=== PATIENT | female | born 2000 | race Caucasian/White ===

== ENCOUNTER 2018-09-25 19:33 | Emergency (ER) | payer SELFPAY ==
[2018-09-25] MEDS ORDERED: LORazepam 2 MG/ML INJ IVP ONE (19:50)
[2018-09-25] MEDS ORDERED: HALOPERIDOL LACT 5 MG/ML INJ IVP ONE (19:50)
[2018-09-25] MEDS ORDERED: NS 1,000 ML IV ONE ×2 (19:50)
--- NOTE | 2018-09-25 19:52 | EDPHY ---
H & P Stated Complaint: n/v Time Seen by Provider: 09/25/18 19:45 HPI/ROS: CHIEF COMPLAINT: Nausea vomiting HISTORY OF PRESENT ILLNESS: Patient is a 18-year-old female who comes to the emergency department complaining of retching, nausea and vomiting that began about 3 hr ago after she woke up from a nap. She was drinking heavily last night. She has had symptoms before similar to this after drinking. She also smokes marijuana daily. She denies fever. She denies abdominal pain. She does complain of cramping. She denies risk of . No urinary symptoms. Severity: Severe Modifying factors: None REVIEW OF SYSTEMS: Constitutional: denies: chills, fever, recent illness, recent injury EENTM: denies: blurred vision, double vision, nose congestion Respiratory: denies: cough, shortness of breath Cardiac: denies: chest pain, irregular heart rate, lightheadedness, palpitations Gastrointestinal/Abdominal: See HPI Genitourinary: denies: dysuria, frequency, hematuria, pain Musculoskeletal: denies: joint pain, muscle pain Skin: denies: lesions, rash, jaundice, bruising Neurological: denies: headache, numbness, paresthesia, tingling, dizziness, weakness Hematologic/Lymphatic: denies: blood clots, easy bleeding, easy bruising Immunologic/allergic: denies: HIV/AIDS, transplant 10 systems reviewed and negative except as noted EXAM: GENERAL: Moderate distress, retching HEAD: Atraumatic, normocephalic. EYES: Pupils equal round and reactive to light, extraocular movements intact, sclera anicteric, conjunctiva are normal. ENT: TMs normal, nares patent, oropharynx clear without exudates. Moist mucous membranes. NECK: Normal range of motion, supple without lymphadenopathy or JVD. LUNGS: Breath sounds clear to auscultation bilaterally and equal. No wheezes rales or rhonchi. HEART: Regular rate and rhythm without murmurs, rubs or gallops. ABDOMEN: Soft, nontender, normoactive bowel sounds. No guarding, no rebound. No masses appreciated. BACK: No CVA tenderness, no spinal tenderness, step-offs or deformities EXTREMITIES: Normal range of motion, no pitting or edema. No clubbing or cyanosis. NEUROLOGICAL: Cranial nerves II through XII grossly intact. Normal speech, normal gait. 5/5 strength, normal movement in all extremities, normal sensation , normal reflexes PSYCH: Normal mood, normal affect. SKIN: Warm, dry, normal turgor, no visible rashes or lesions. Source: Patient Exam Limitations: No limitations - Personal History LMP (Females 10-55): 8-14 Days Ago Current Tetanus Diphtheria and Acellular Pertussis (TDAP): Unsure - Medical/Surgical History Hx Asthma: Yes Hx Chronic Respiratory Disease: No Hx Diabetes: No Hx Cardiac Disease: No Hx Renal Disease: No Hx Cirrhosis: No Hx Alcoholism: No Hx HIV/AIDS: No Hx Splenectomy or Spleen Trauma: No - Family History Significant Family History: No pertinent family hx - Social History Smoking Status: Current every day smoker Alcohol Use: Heavy Drug Use: Marijuana Constitutional: Initial Vital Signs Heart Rate 110 H 09/25/18 19:36 Blood Pressure 145/90 H 09/25/18 19:36 O2 Sat (%) 96 09/25/18 19:36 O2 Delivery Mode Room Air Allergies/Adverse Reactions: No Known Allergies Allergy (Unverified 09/25/18 19:35) Home Medications: Medication Instructions Recorded Gabapentin 09/25/18 Metoclopramide [Reglan 10 mg tab 10 mg PO BID PRN 7 Days tab 09/25/18 (RX)] Medical Decision Making ED Course/Re-evaluation: 8:25 p.m. the patient is feeling much better. She is sleeping. No longer nauseous. No abdominal pain. Nontender exam. test negative. 8:45 p.m. patient is doing well. She is taking p.o.. Abdominal exam remains benign. Will discharge at this time. Will write prescription for Reglan. Differential Diagnosis: Partial list of the Differential diagnosis considered include but were not limited to; vomiting, cyclic vomiting, abdominal migraine, cannabis hyperemesis and although unlikely based on the history and physical exam, I also considered ischemia, obstruction, biliary disease, appendicitis, volvulus, , ovarian cyst. I discussed these differential diagnoses and the plan with the patient as well as the usual and expected course. The patient understands that the diagnosis is provisional and that in medicine we are not always correct and that further workup is often warranted. Usual and customary warnings were given. All of the patient's questions were answered. The patient was instructed to return to the emergency department should the symptoms at all worsen or return, otherwise to followup with the physician as we discussed. - Data Points Medications Given: Discontinued Medications Haloperidol Lactate (Haldol Injection) 5 mg IVP EDNOW ONE Stop: 09/25/18 19:51 Last Admin: 09/25/18 19:56 Dose: 5 mg Sodium Chloride (Ns) 1,000 mls @ 0 mls/hr IV EDNOW ONE; Wide Open PRN Reason: Protocol Stop: 09/25/18 19:51 Last Admin: 09/25/18 19:58 Dose: 1,000 mls Sodium Chloride (Ns) 1,000 mls @ 0 mls/hr IV EDNOW ONE; Wide Open PRN Reason: Protocol Stop: 09/25/18 19:51 Last Admin: 09/25/18 19:58 Dose: 1,000 mls Lorazepam (Ativan Injection) 1 mg IVP EDNOW ONE Stop: 09/25/18 19:51 Last Admin: 09/25/18 19:56 Dose: 1 mg Departure - Departure Disposition: Home, Routine, Self-Care Clinical Impression: Vomiting Qualifiers: Vomiting type: unspecified Vomiting Intractability: non-intractable Nausea presence: with nausea Qualified Code(s): R11.2 - Nausea with vomiting, unspecified Condition: Fair Instructions: Acute Nausea and Vomiting (ED) Referrals: Moraima Young MD [Medical Doctor] - As per Instructions Prescriptions: Metoclopramide [Reglan 10 mg tab (RX)] 10 mg PO BID PRN 7 Days tab PRN Reason: *Nausea & Vomiting
[2018-09-25 21:22] VITALS: BP 119/86
== END 2018-09-25 21:22 | disposition home or self-care (01) ==
DX: R11.2 Nausea with vomiting, unspecified (principal)
CPT/HCPCS: 96374; J1630; J2060